=== PATIENT | male | born 1955 | race Caucasian/White ===

== ENCOUNTER 2016-05-10 17:53 | Emergency (ER) | payer OTHER ==
[~2016-05-10] VITALS: Ht 180.3 cm; Wt 95.3 kg
--- NOTE | 2016-05-10 18:44 | ED GI/GU/ABDOMINAL COMPLAINT ---
History of Present Illness General Chief Complaint: Abdominal Pain/Flank Pain Stated Complaint: EPIGASTRIC PAIN SINCE THIS AM, "FEELS LIKE GAS" Source: patient Exam Limitations: no limitations Allergies Uncoded Allergies: HAYFEVER (Intermediate, CONGESTION, ETC. 05/10/16) Triage Note: PRESENTS W/ ABD PAIN BUILDING ALL DAY 07/16 ALSO REPORTS RIGHT FLANK PAIN 3 WEEKS DENIES HX Triage Nurses Notes Reviewed? yes HPI: This patient is a 61-year-old male with an unremarkable past medical history who presents to the emergency department today for evaluation of upper abdominal pain since this morning. The patient reported that sometime between 8:00 and 10 :00 this morning he developed upper abdominal, cramping." He reported he thought he had to move his bowels. He did have a large bowel movement with no diarrhea and no blood in the stool. However, this did not relieve his symptoms. The patient reported that since then he has been having between 2 and 5 out of 10 abdominal, "aching," which is nonradiating, constant, and worse with certain movements. The patient denied any nausea or vomiting. He has not been having any fevers, chills, chest pain, difficulty breathing, palpitations, arm, jaw pain, urinary burning, urgency, frequency, or vomiting. The patient also reported a secondary complaint of right lower back pain 3 weeks. The patient reported that the pain comes and goes. He does not feel it when he is at rest, but when he is up and around and moves in certain directions the pain shoots up the right side of his back. The pain gets up to a 10 out of 10 and sharp. (ANSELMO BISHOP,RANDALL) Vital Signs & Intake/Output Vital Signs & Intake/Output Vital Signs Date Time Temp Pulse Resp B/P Pulse O2 O2 Flow FiO2 Ox Delivery Rate 05/10 2044 97.4 73 18 122/80 98 Room Air 05/10 1827 95 Room Air Room Air 05/10 1814 97.0 84 20 130/87 97 Room Air ED Intake and Output 05/11 0000 05/10 1200 Intake Total Output Total Balance Patient 210 lb Weight Reconcile Medications Cyclobenzaprine HCl 5 MG TABLET 1 TAB PO BID PRN MUSCLE SPASMS Loratadine (Allergy Relief) 10 MG TABLET 1 TAB PO DAILY ALLERGIES (Reported) Methylcellulose (Fiber) (Unknown Strength) TABLET (Unknown Dose) PO DAILY FIBER SUPPLEMENT (Reported) Naproxen (Naprosyn) 500 MG TABLET 1 TAB PO BID PRN pain and inflammation (SUZANNA HENRY,DIALLO Noriega) Past History Travel History Traveled to [place] past 21 day No Medical History Any Pertinent Medical History? see below for history Surgical History Surgical History: tonsillectomy Psychosocial History What is your primary language Divehi Tobacco Use: Quit >30 days ago ETOH Use: occasional use Illicit Drug Use: denies illicit drug use Family History Hx Contributory? No (RANDALL BRIONES PA-C) Review of Systems Review of Systems Constitutional: Reports: no symptoms. EENTM: Reports: no symptoms. Respiratory: Reports: no symptoms. Cardiovascular: Reports: no symptoms. GI: Reports: see HPI. Genitourinary: Reports: no symptoms. Musculoskeletal: Reports: see HPI. Skin: Reports: no symptoms. Neurological/Psychological: Reports: no symptoms. All Other Systems: Reviewed and Negative (RANDALL BRIONES PA-C) Physical Exam Physical Exam Gastrointestinal: normal bowel sounds, soft, no organomegaly, nondistended. No rebound or guarding. Mild tenderness to palpation in the mid lower abdomen. No McBurney's point tenderness. Negative Rovsing sign. Negative Hobbs sign. Comments: Well-developed well-nourished person in no acute distress HEENT: Normal EENT exam, moist mucous membranes : Supple with no lymphadenopathy Back: Normal gait. No CVA tenderness. Right thoracic paraspinal musculature tenderness to palpation. No midline tenderness Cardiovascular: Regular rate and rhythm with no murmurs, rubs, or gallops Respiratory: No respiratory distress. Lungs clear to auscultation bilaterally Extremity: Normal and equal pulses Neuro: Alert oriented x3, cranial nerves II through XII grossly intact. Skin: No appreciable rash on exposed skin, skin is warm and dry. Psych: Mood and affect is normal Core Measures ACS in differential dx? Yes Severe Sepsis Present: No Septic Shock Present: No (RANDALL BRIONES PA-C) Progress Differential Diagnosis: AMI, appendicitis, biliary colic, bowel obstruction, colon cancer, cholecystitis, diverticulitis, gastritis, hepatitis, ischemic bowel, inflamm bowel dis, pancreatitis, PUD/GERD, perforated viscous, pyelonephritis, ureterolithiasis, urinary retention, UTI/pyelo Initial ED EKG: normal axis, normal intervals, no ST T wave changes, 66 BPM Comments: 05/10/2016 7:10:52 PM: The patient did admit to drinking more than normal. He reported that he has been drinking 3 glasses of vodka daily. 05/10/2016 8:36:07 PM: I was at the patient's bedside for reevaluation and to update him on his laboratory studies. EKG is normal sinus rhythm. Troponin not elevated. White blood cell count 11.7. Rest of his CMP was unremarkable with no elevation in bilirubin, transaminases, or amylase/lipase. My suspicion for an acute intra-abdominal process is low at this time based on patient's physical examination and laboratory workup here in the emergency department. The patient will reported that he is feeling better. I discussed this patient is option for a CT scan of the abdomen and pelvis to rule out intra-abdominal processes such as appendicitis. I also discussed with him the risks of radiation. The patient reported that he would like to go home and he will return if his symptoms worsen. Stable for discharge home at this time. (ANSELMO BISHOP,RANDALL) Plan of Care: Orders Procedure Date/time Status CULTURE,URINE 05/10 1844 Active URINALYSIS 05/10 1844 Complete TROPONIN LEVEL 05/10 1844 Complete LIPASE 05/10 1844 Complete DIRECT BILIRUBIN 05/10 1844 Complete COMPREHENSIVE METABOLIC PANEL 05/10 1844 Complete CBC WITHOUT DIFFERENTIAL 05/10 1844 Complete AMYLASE 05/10 1844 Complete EKG 05/10 1844 Active Laboratory Tests 05/10/161927: Urine Color YEL, Urine Clarity CLEAR, Urine pH 6.0, Ur Specific [place] 1.015, Urine Protein NEG, Urine Ketones NEG, Urine Nitrite NEG, Urine Bilirubin NEG, Urine Urobilinogen 0.2, Ur Leukocyte Esterase NEG, Ur Microscopic SEDIMENT EXAMINED, Urine RBC RARE, Urine Hemoglobin TRACE-INTACT H, Urine Glucose NEG 05/10/161919: Anion Gap 9, Estimated GFR > 60, BUN/Creatinine Ratio 15.6, Glucose 102 H, Calcium 9.9, Total Bilirubin 0.5, Direct Bilirubin 0.4, AST 22, ALT 36, Alkaline Phosphatase 55, Troponin I < 0.01, Total Protein 6.8, Albumin 4.2, Globulin 2.6, Albumin/Globulin Ratio 1.6, Amylase < 30 L, Lipase 73, CBC w Diff NO MAN DIFF REQ, RBC 5.24, MCV 85.6, MCH 28.6, RDW 13.6, MPV 9.0, Gran % 88.8 H, Lymphocytes % 7.2 L, Monocytes % 3.5, Eosinophils % 0.3, Basophils % 0.2, Absolute Granulocytes 10.1 H, Absolute Lymphocytes 0.8 L, Absolute Monocytes 0.4, Absolute Eosinophils 0, Absolute Basophils 0, PUBS MCHC 33.5 Microbiology 05/11 1927 URINE ROUT: Urine Culture - RES Departure Departure Disposition: HOME OR SELF CARE Condition: Stable Clinical Impression Primary Impression: Muscle strain Secondary Impressions: Abdominal pain Qualifiers: Abdominal location: upper abdomen, unspecified Qualified Code: R10.10 - Upper abdominal pain, unspecified Referrals: MICHAEL HENRY,WILTON Gonzalez (PCP/Family) Additional Instructions: Please take [id number] Dulcolax as directed. Take Flexeril as prescribed for muscle relaxation. Take naproxen as prescribed for pain and inflammation. Rest and avoid any strenuous activity or heavy lifting. Gentle stretching. Return for any worsening symptoms or concerns. Departure Forms: Customer Survey General Discharge Information Prescriptions: Current Visit Scripts Naproxen (Naprosyn) 1 TAB PO BID PRN pain and inflammation #20 TAB Cyclobenzaprine HCl 1 TAB PO BID PRN MUSCLE SPASMS #10 TAB (RANDALL BRIONES PA-C) PA/COOK CHILL TECHNICIAN Co-Sign Statement Statement: ED Attending supervision documentation- [] I saw and evaluated the patient. I have also reviewed all the pertinent lab results and diagnostic results. I agree with the findings and the plan of care as documented in the PA's/COOK CHILL TECHNICIAN's documentation. [X] I have reviewed the ED Record and agree with the PA's/COOK CHILL TECHNICIAN's documentation. [] Additions or exceptions (if any) to the PAs/COOK CHILL TECHNICIAN's note and plan are summarized below: [] (SUZANNA HENRY,DIALLO Noriega)
[2016-05-10] MEDS ORDERED: FIBER500 MG PO (19:15)
[2016-05-10] MEDS ORDERED: ALLERGY RELIEF10 M1 PO (19:16)
[2016-05-10 19:27] LABS: ABSOLUTE BASOPHIL COUNT 0 /CUMM (0.0-0.2); ABSOLUTE EOSINOPHIL COUNT 0 /CUMM (0.0-0.7); ABSOLUTE GRANULOCYTE CT 10.1 /CUMM (1.4-6.5); ABSOLUTE LYMPH COUNT 0.8 /CUMM (1.2-3.4); ABSOLUTE MONOCYTE COUNT 0.4 /CUMM (0.10-0.60); BASOPHIL % 0.2 % (0.0-2.0); EOSINOPHIL % 0.3 % (0-5); HEMATOCRIT 44.9 % (42-52); MEAN CORPUSCULAR HGB 28.6 PG (27.0-31.0); MEAN CORPUSCULAR HGB CONC 33.5 G/DL (33.0-37.0); MEAN CORPUSCULAR VOLUME 85.6 FL (80.0-94.0); PLATELET COUNT 193 /CUMM (130-400); RBC DISTRIBUTION WIDTH 13.6 % (11.5-14.5); RED BLOOD CELL CT 5.24 /CUMM (4.70-6.10); WHITE BLOOD CELL COUNT 11.3 /CUMM (4.8-10.8)
[2016-05-10 20:10] LABS: GRANULOCYTE % 88.8 % (42.2-75.2)
[2016-05-10] MEDS ORDERED: CYCLOBENZAPRINE5 M2 PO (20:40)
[2016-05-10] MEDS ORDERED: NAPROSYN500 M1 PO (20:40)
[2016-05-10 20:45] VITALS: BP 122/80
== END 2016-05-10 20:46 ==
LOC: ERH 17:53
PROVIDERS: Physician Assistant
DX: S39.011A Strain of muscle, fascia and tendon of abdomen, initial encounter (principal); R10.10 Upper abdominal pain, unspecified
CPT/HCPCS: 81001; 87086; 93005; 93010